=== PATIENT | female | born 1985 | race Two or more races ===

== ENCOUNTER 2020-01-04 23:52 | Emergency (ER) | payer MEDICAID ==
[~2020-01-04] VITALS: Ht 157.5 cm; Wt 70.8 kg
[2020-01-05] MEDS ORDERED: AMITRIPTYLINE25 MG ORAL (00:04)
[2020-01-05 00:10] VITALS: BP 131/86
--- NOTE | 2020-01-05 00:14 | Emergency Room Report ---
History of Present Illness General Chief Complaint: Headache Source: Patient Present Illness HPI This is a 34-year-old female with a history of headache. She presents with chief complaint of headache and nausea. She says she saw a neurologist in the past and had MRI done. She said diagnosed with inflammation to the right side of the brain. She was started on amitriptyline and is not helping. For the last 3 weeks her headache been constant. Pain is to the right side of the head. Throbbing in nature. Also pain to the right eye. She has nausea and vomiting. No fever or chills. No focal deficit. Never been treated for any other medication other than amitriptyline. Denies any fever or chills peer denies any neck pain. Pain is 8 out of 10. Worse with lights. Better in the dark. Allergies: Coded Allergies: No Known Allergies (Unverified , 01/05/20) COVID-19 Screening Contact w/high risk pt: No Experienced COVID-19 symptoms?: No COVID-19 Testing performed COLOR GRINDER: No Patient History Past Medical History: see triage record, old chart reviewed Past Surgical History: none Pertinent Family History: none Social History: Denies: smoking Last Menstrual Period: 12/25/19 Now: No Immunizations: other Reviewed Nursing Documentation: PMH: Agreed; PSxH: Agreed Nursing Documentation-PMH Past Medical History: No Stated History Review of Systems Eye: Denies: eye pain, blurred vision ENT: Denies: ear pain, nose congestion, throat swelling Respiratory: Denies: cough, shortness of breath Cardiovascular: Denies: chest pain, palpitations Gastrointestinal: Reports: nausea, vomiting; Denies: abdominal pain, diarrhea Musculoskeletal: Denies: back pain, joint pain Skin: Denies: rash Neurological: Reports: headache; Denies: numbness Endocrine: Denies: increased thirst, increased urine Hematologic/Lymphatic: Denies: easy bruising All Other Systems: negative except mentioned in HPI Physical Exam Vital Signs Date Time Temp Pulse Resp B/P (MAP) Pulse Ox O2 Delivery O2 Flow Rate FiO2 01/05/20 00:00 98.4 80 15 131/86 (101) 100 Room Air Vitals normal Sp02 EP Interpretation: reviewed, normal General Appearance: well appearing, no apparent distress, alert Head: normocephalic, atraumatic Eyes: bilateral eye PERRL, bilateral eye EOMI ENT: hearing grossly normal, normal pharynx Neck: full range of motion, supple, no meningismus Respiratory: chest non-tender, lungs clear, normal breath sounds Cardiovascular #1: regular rate, rhythm, no murmur Gastrointestinal: normal bowel sounds, non tender, no mass, no organomegaly, no bruit, non-distended Musculoskeletal: back normal, normal range of motion, gait/station normal Psychiatric: mood/affect normal Medical Decision Making Diagnostic Impression: Primary Impression: Migraine headache Qualified Codes: G43.009 - Migraine without aura, not intractable, without status migrainosus Additional Impression: UTI (urinary tract infection) Qualified Codes: N30.00 - Acute cystitis without hematuria ER Course Patient presents with symptoms consistent with migraine. No evidence of menin gitis, bleed or neoplastic process. Pain resolved now. Will discharge home. CT/MRI/US Diagnostic Results CT/MRI/US Diagnostic Results : Imaging Test Ordered: CT head Impression Read by radiologist. Negative. Last Vital Signs Date Time Temp Pulse Resp B/P (MAP) Pulse Ox O2 Delivery O2 Flow Rate FiO2 01/05/20 00:00 98.4 80 15 131/86 (101) 100 Room Air Status: improved Disposition: HOME, SELF-CARE Condition: Improved Scripts Sumatriptan Succinate* (IMITREX*) 50 Mg Tablet 50 MG ORAL DAILY PRN MIGRAINE, #30 TAB Prov: Keegan Blancas MD 01/05/20 Nitrofurantoin Monohyd/M-Cryst (Nitrofurantoin [place]-Mcr 100 mg) 100 Mg Capsule 100 MG ORAL Q12H, #14 CAP Prov: Keegan Blancas MD 01/05/20 Patient Instructions: Migraine Headache Additional Instructions: Follow-up with your doctor in 7 days. Return if symptoms worsen. Keegan Blancas MD Jan 05, 2020 00:14
[2020-01-05] MEDS ORDERED: Metoclopramide 10mg/2ml Inj IVP ONE (00:15)
[2020-01-05] MEDS ORDERED: dexAMETHasone 10mg/ml Inj IV ONE (00:15)
[2020-01-05] MEDS ORDERED: DiphenhydrAMINE 50mg/ml Inj IVP ONE (00:15)
[2020-01-05] MEDS ORDERED: Ketorolac 30mg Inj IV ONE (00:15)
[2020-01-05 00:55] LABS: BILIRUBIN, URINE NEGATIVE (NEGATIVE); COLOR,URINE PALE YELLOW; GLUCOSE, URINE (UA) NEGATIVE (NEGATIVE); KETONES,URINE NEGATIVE (NEGATIVE); LEUKOCYTE ESTERASE ,URINE 3+ (NEGATIVE); NITRITE,URINE NEGATIVE (NEGATIVE); PH,URINE 6 (4.5-8.0); PROTEIN,URINE NEGATIVE (NEGATIVE); UROBILINOGEN,URINE NORMAL MG/DL (0.0-1.0)
[2020-01-05 01:09] LABS: APPEARANCE,URINE SLIGHTLY CLOUDY
[2020-01-05] MEDS ORDERED: cefTRIAXone 1 GM in NS 55 ML IVPB ONE (01:15)
[2020-01-05] MEDS ORDERED: IMITREX50 MG ORAL (01:17)
[2020-01-05] MEDS ORDERED: MACROBID100 MG ORAL (01:17)
--- NOTE | 2020-01-05 01:17 | Diagnostic Imaging Report ---
EXAM: CT Head Without Intravenous Contrast CLINICAL HISTORY: PAIN TECHNIQUE: Axial computed tomography images of the head/brain without intravenous contrast. CTDI is 53.40 mGy and DLP is 1042.50 mGy-cm. One or more of the following dose reduction techniques were used: automated exposure control, adjustment of the mA and/or kV according to patient size, use of iterative reconstruction technique. COMPARISON: No relevant prior studies available. FINDINGS: Brain: Unremarkable. No hemorrhage. No significant white matter disease. No edema. Ventricles: Unremarkable. No ventriculomegaly. Bones/joints: Unremarkable. No acute fracture. Soft tissues: Unremarkable. Sinuses: Unremarkable as visualized. No acute sinusitis. Mastoid air cells: Unremarkable as visualized. No mastoid effusion. IMPRESSION: No acute intracranial abnormality.
[2020-01-05 01:43] VITALS: BP 129/83
== END 2020-01-05 01:43 | disposition home or self-care (01) ==
LOC: EMR 01-05 00:15
DX: G43.009 Migraine without aura, not intractable, without status migrainosus (principal); N30.00 Acute cystitis without hematuria
CPT/HCPCS: 70450; 81003; 81025; 87086; 96365; 96375; J0696; J1200; J1885; J2765; Z7502; 99284